=== PATIENT | female | born 1960 | race Caucasian/White ===

== ENCOUNTER 2020-05-28 08:26 | Outpatient (CLI) | payer OTHER, SELFPAY ==
--- NOTE | ~2020-05-28 | MM_ITS ---
EXAMINATION: MM screening [facility] BI w aletha HISTORY: Screening TECHNIQUE: Craniocaudal and mediolateral oblique 3-D tomosynthesis images were obtained and synthetic 2-D images were generated. CAD analysis was submitted and interpreted. COMPARISON: Comparison to multiple prior studies sequentially, with oldest reviewed study dated 06/2015. BREAST PARENCHYMAL COMPOSITION: There are scattered areas of fibroglandular density. FINDINGS: There is no evidence of suspicious mass, calcification, or architectural distortion to sugg est malignancy in either breast. There has been no suspicious interval change. IMPRESSION: 1. No mammographic evidence of malignancy. 2. Recommend routine screening mammography in one year. BI-RADS Category 1: Negative Reviewed, dictated and finalized at location A.
== END 2020-05-28 08:27 | disposition home or self-care (01) ==
LOC: ANHIMG 08:30
PROVIDERS: PCP Family Medicine; Visit Provider Obstetrics & Gynecology Gynecology
DX: Z12.31 Encounter for screening mammogram for malignant neoplasm of breast (principal)
CPT/HCPCS: 77063; 77067

== ENCOUNTER 2021-07-16 07:32 | Outpatient (CLI) | payer OTHER, SELFPAY ==
--- NOTE | ~2021-07-16 | MM_ITS ---
EXAMINATION: MM screening [facility] BI w aletha HISTORY: Screening mammogram TECHNIQUE: Craniocaudal and mediolateral oblique 3-D tomosynthesis images were obtained and synthetic 2-D images were generated. CAD analysis was submitted and interpreted. COMPARISON: 05/28/2020, 04/10/2019 bilateral screening mammogram examinations BREAST PARENCHYMAL COMPOSITION: The breasts are heterogeneously dense, which may obscure small masses . FINDINGS: There is no evidence of suspicious mass, calcification, or architectural distortion to sugg est malignancy in either breast. There has been no suspicious interval change. IMPRESSION: 1. No mammographic evidence of malignancy. 2. Recommend routine screening mammography in one year. BI-RADS Category 1: Negative Reviewed, dictated and finalized at location A.
== END 2021-07-16 07:33 | disposition home or self-care (01) ==
LOC: ANHIMG 07:33
PROVIDERS: PCP Family Medicine; Visit Provider Nurse Practitioner
DX: Z12.31 Encounter for screening mammogram for malignant neoplasm of breast (principal)
CPT/HCPCS: 77063; 77067

== ENCOUNTER 2022-08-28 07:44 | Outpatient (CLI) | payer OTHER, SELFPAY ==
--- NOTE | 2022-08-28 08:07 | ECG_ITS ---
Measurements Intervals [place] Rate: 69 P: 32 MD: 202 QRS: 10 QRSD: 84 T: 38 QT: 380 QTc: 407 Interpretive Statements SINUS RHYTHM NONSPECIFIC T-WAVE ABNORMALITY BORDERLINE ECG NO PREVIOUS ECG AVAILABLE FOR COMPARISON Electronically Signed On 08-28-2022 13:29:46 CDT by Jasiel Dunn M.D.
== END 2022-08-28 07:45 | disposition home or self-care (01) ==
LOC: ANHCARD 07:46
PROVIDERS: PCP Family Medicine; Visit Provider Family Medicine
DX: I10 Essential (primary) hypertension (principal)
CPT/HCPCS: 93005

== ENCOUNTER 2022-10-26 13:19 | Outpatient (CLI) | payer OTHER, SELFPAY ==
--- NOTE | ~2022-10-26 | MM_ITS ---
EXAMINATION: MM screening [facility] BI w aletha HISTORY: Screening TECHNIQUE: Craniocaudal and mediolateral oblique 3-D tomosynthesis images were obtained and synthetic 2-D images were generated. CAD analysis was submitted and interpreted. COMPARISON: Comparison to multiple prior studies sequentially, with oldest reviewed study dated 12/14. BREAST PARENCHYMAL COMPOSITION: There are scattered areas of fibroglandular density. FINDINGS: There is no evidence of suspicious mass, calcification, or architectural distortion to sugg est malignancy in either breast. There has been no suspicious interval change. IMPRESSION: 1. No mammographic evidence of malignancy. 2. Recommend routine screening mammography in one year. BI-RADS Category 1: Negative Reviewed, dictated and finalized at location A.
--- NOTE | ~2022-10-26 | DEXA_ITS ---
Bone Density Report Name: NABILA RICO Age: 62 Sex: Female Ethnicity: White Date of : 1960 Indication: postmenopausal; screening for osteoporosis; parental hip fracture; hysterectomy; Referring Provider: Biranna, Coleen Study: Bone densitometry was performed. Exam Date: October 26, 2022 Accession number: [id number] Bone Density: Region BMD T-score Z-score Classification AP Spine (L1-L4) 1.336 2.6 4.2 Normal Femoral Neck (Left) 1.001 1.4 2.7 Normal Total Hip (Left) 1.100 1.3 2.4 Normal Femoral Neck (Right) 0.963 1.0 2.4 Normal Total Hip (Right) 1.087 1.2 2.2 Normal Total Hip Mean 1.094 1.3 2.3 Normal World Health Organization criteria for BMD impression classify patients as: Normal (T-score at or above -1.0), Osteopenia (T-score between -1.0 and -2.5), or Osteoporosis (T-score at or below -2.5). 10-year Fracture Risk: FRAX not reported because: All T-scores for Spine Total, Hip Total, Femoral Neck at or above -1.0 Previous Exams: Region Exam Age BMD T-score BMD Change BMD Change Date g/cm2 vs Baseline vs Previous AP Spine(L1-L4) 10/26/2022 62 1.336 2.6 -0.149* -0.149* 12/13/2014 54 1.485 4.0 Total Hip(Left) 10/26/2022 62 1.100 1.3 -0.073* -0.073* 12/13/2014 54 1.173 1.9 Total Hip(Right) 10/26/2022 62 1.087 1.2 -0.092* -0.092* 12/13/2014 54 1.178 1.9 *Denotes significance at 95% confidence level, LSC for AP Spine = 0.022 g/cm2, LSC for Total Hip = 0.027 g/cm2 Clinical Information Provided by Patient: Parent has had a hip fracture Has the following medical conditions: Hysterectomy Patient maximum height was 59.5 Menopause Age: 40 No regular weight bearing exercise Drinks caffeinated beverages Onset of menses at age 16 Number of children 1 Impression: The patient has normal bone mass. The patient has risk factors, including: parental hip fracture. The BMD for the AP Spine(L1-L4) decreased, changing by -0.149 since the last DXA exam. The BMD for the Total Hip(Left) decreased, changing by -0.073 since the last DXA exam. The BMD for the Total Hip(Right) decreased, changing by -0.092 since the last DXA exam. Discussion: LOW RISK OF FRACTURE; BONE DENSITY IS WELL ABOVE THE MINIMUM DESIRABLE LEVEL AND ABOVE AVERAGE FOR AGE AND SEX AT ALL SKELETAL SITES TESTED. This person's bone density is above expected limits for age and sex. This is rarely clinically signi
== END 2022-10-26 13:20 ==
PROVIDERS: PCP Obstetrics & Gynecology Gynecology; Visit Provider Nurse Practitioner
DX: Z12.31 Encounter for screening mammogram for malignant neoplasm of breast (principal); Z13.820 Encounter for screening for osteoporosis; Z78.0 Asymptomatic menopausal state
CPT/HCPCS: 77063; 77067; 77080

== ENCOUNTER 2023-07-15 14:30 | Emergency (ER) | payer OTHER, SELFPAY ==
--- NOTE | ~2023-07-15 | CT_ITS ---
EXAMINATION: CT brain wo con DATE: 07/15/2023 16:23 INDICATION: Head injury. Headache. TECHNIQUE: Computed tomography (CT) of the head was performed without intravenous contrast. The mA wa s adjusted according to patient size. Iterative reconstruction technique was employed. The dose-lengt h product was 605.33 mGy-cm. COMPARISON: None FINDINGS: There are scattered areas of low attenuation in the cerebral white matter, which is within normal limits for the patient's age. There is no intracranial hemorrhage, acute infarction, or abnorm al intracranial mass lesion. The ventricles are normal in size. The mastoid air cells are normal. The orbits are normal. There is extensive mucosal thickening in the right frontal, right ethmoid, and ri ght maxillary sinuses with thickening and sclerosis of the sinus navarrete, consistent with chronic sinus itis. IMPRESSION: 1. Normal brain. 2. Chronic sinusitis. Reviewed, dictated and finalized at location E.
[2023-07-15 14:39] VITALS: BP 187/93; PULSE 68; RESP 18; TEMP 36.7; O2SAT 100
--- NOTE | 2023-07-15 16:06 | ED.HEATRA ---
HPI - Head Injury General Chief complaint: Head Injury <Pollo Oro APRN - Last Filed: 07/15/23 16:15> Stated complaint: head injury wednesday night <Pollo Oro APRN - Last Filed: 07/15/23 16:15> Time Seen by Provider: 07/15/23 16:00 <Pollo rOo APRN - Last Filed: 07/15/23 16:15> Focused HPI: Kacy is a 62-year-old female patient presenting to the ER today with complaints of a headache after falling and hitting her head on Wednesday. She denies any loss of consciousness. Still having headaches. Has taken Tylenol-last dose was yesterday and Excedrin this morning and she is not having any relief of headache. Rates pain currently 6/10. She is having photo sensitivity, nausea, and phonosensitivity. Blood pressure is elevated at 187/93. She denies any chest pain or shortness of breath. Seen Dr. Pizano today and he sent her to the ER for a head CT. General: Well-developed, well nourished, in no apparent distress Head: Normocephalic, atraumatic Eyes: Pupils equally round and reactive to light bilaterally, EOM intact, sclera and conjunctive clear, no discharge, lids normal Ears: TMs intact and clear, ear canals clear, no drainage, grossly hearing normal. Nose: Nares patent, no discharge, no inflammation, no sinus tenderness. Mouth: Oropharynx without lesions or masses, good dentition, MMM. Tongue midline, even rise and fall of uvula Neck: Supple, trachea midline, no enlargement of anterior or posterior cervical nodes, no thyroid masses or goiter palpable. Cardio: Regular rate and rhythm, s1 and s2 normal, no murmur appreciated. Resp: Clear to auscultation bilaterally anteriorly and posteriorly, no rhonchi, rales, wheezing or rubs Musculoskeletal: No deformity, non-tender to palpation, grossly normal range of motion, muscle strength strong and equal, peripheral pulse strong, no edema, no cyanosis, normal gait and station Neuro: Alert and oriented x4 with normal speech, no focal deficits, cranial nerves I through XII intact, muscle strength 5 out of 5, sensation intact bilaterally Patient screened in triage and initial orders placed. Additional care and disposition to be based upon diagnostic testing and treatment. <Pollodaysi Oro APRN - Last Filed: 07/15/23 16:15> Source: patient <Pollo PatelARELIS gaming - Last Filed: 07/15/23 16:15> Mode of arrival: ambulatory <Pollodaysi Oro APRN - Last Filed: 07/15/23 16:15> Limitations: no limitations <Pollo Oro APRN - Last Filed: 07/15/23 16:15> History of Present Illness HPI Narrative: Agree with HPI <Eleuterio Payne MD - Last Filed: 07/15/23 17:43> Related Data Home medications: Home Medications Medication Instructions Recorded Confirmed multivitamin 1 tablet PO DAILY 07/15/23 07/15/23 <Pollo Oro APRN - Last Filed: 07/15/23 16:15> Allergies/Adverse reactions: Allergies Allergy/AdvReac Type Severity Reaction Status Date / Time morphine Allergy Mild SEVERE N/V Verified 07/15/23 17:33 FOR SEVERAL DAYS <Pollo Oro APRN - Last Filed: 07/15/23 16:15> Review of Systems Review of Systems: All systems reviewed & are unremarkable except as noted in HPI and below <Eleuterio Payne MD - Last Filed: 07/15/23 17:43> Constitutional: Constitutional: Reports fatigue <Eleuterio Payne MD - Last Filed: 07/15/23 17:43> Eyes: Eyes: Denies change in vision and Reports photophobia <Eleuterio Payne MD - Last Filed: 07/15/23 17:43> ENT: Reports system reviewed and no additional complaints, except as documented <Eleuterio Payne MD - Last Filed: 07/15/23 17:43> Neurologic: Reports dizziness, Denies syncope, Reports headache(s), Denies focal weakness and Denies numbness <Eleuterio Payne MD - Last Filed: 07/15/23 17:43> PMFSH Past Medical History Medical History: Medical History (Updated 07/15/23 @ 17:42 by Eleuterio Payne,
[2023-07-15] MEDS: KETOROLAC (*BKC) 60 MG/2 ML VIAL IM (17:34)
[2023-07-15 17:57] VITALS: BP 168/90; PULSE 64; RESP 16; O2SAT 98
== END 2023-07-15 18:10 | disposition home or self-care (01) ==
PROVIDERS: Emergency Provider Emergency Medicine; PCP Family Medicine
DX: S06.0X0A Concussion without loss of consciousness, initial encounter (principal); E66.3 Overweight; Z68.26 Body mass index [BMI] 26.0-26.9, adult; D51.9 Vitamin B12 deficiency anemia, unspecified; D50.9 Iron deficiency anemia, unspecified; Z87.891 Personal history of nicotine dependence; J32.9 Chronic sinusitis, unspecified; W19.XXXA Unspecified fall, initial encounter
CPT/HCPCS: 70450; 96372; 99284; J1885

== ENCOUNTER 2023-12-14 13:58 | Outpatient (CLI) | payer OTHER, SELFPAY ==
--- NOTE | ~2023-12-14 | MM_ITS ---
EXAMINATION: MM screening [facility] BI w aletha HISTORY: Screening TECHNIQUE: Craniocaudal and mediolateral oblique 3-D tomosynthesis images were obtained and synthetic 2-D images were generated. CAD analysis was submitted and interpreted. COMPARISON: Comparison to multiple prior studies sequentially, with oldest reviewed study dated 01/14. BREAST PARENCHYMAL COMPOSITION: Not dense: There are scattered areas of fibroglandular density. FINDINGS: There is no evidence of suspicious mass, calcification, or architectural distortion to sugg est malignancy in either breast. There has been no suspicious interval change. IMPRESSION: 1. No mammographic evidence of malignancy. 2. Recommend routine screening mammography in one year. BI-RADS Category 1: Negative Reviewed, dictated and finalized at location B.
== END 2023-12-14 13:59 | disposition home or self-care (01) ==
PROVIDERS: PCP Family Medicine; Visit Provider Nurse Practitioner Women's Health
DX: Z12.31 Encounter for screening mammogram for malignant neoplasm of breast (principal)
CPT/HCPCS: 77063; 77067